=== PATIENT | male | born 1950 | race Caucasian/White ===

== ENCOUNTER 2021-11-05 05:48 | Observation (INO) | payer MEDICARE, OTHER ==
[~2021-11-05] VITALS: Ht 177.8 cm; Wt 70.3 kg
[~2021-11-05 05:48] MED LIST: CENTRUM ADULTS1 EACH PO; VITAMIN B-121000 MC2 PO; VITAMIN D310 MCG PO; ZINC PO
[2021-11-05] MEDS ORDERED: DEXAMETHASONE SOD PHOS 10 MG/1 ML VIAL ONE (06:35)
[2021-11-05] MEDS ORDERED: CELECOXIB 200 MG CAP ONE (06:35)
[2021-11-05] MEDS ORDERED: GABAPENTIN 300 MG CAP ONE (06:35)
[2021-11-05] MEDS ORDERED: TRANEXAMIC ACID 20 ML ONE (06:51)
[2021-11-05] MEDS ORDERED: Vancomycin IV 1,000 MG ONE (06:51)
[2021-11-05] MEDS ORDERED: SODIUM CHLORIDE 0.9% 500ML 500 ML ONE (06:51)
[2021-11-05] MEDS ORDERED: ROPIVACAINE 246.25 MG, EPINEPHRINE HCL 1:1000 1ML 0.5 MG, CLONIDINE HCL 0.08 MG, KETORO... INJ ONE ×5 (08:00)
[2021-11-05] MEDS ORDERED: ROPIVACAINE 0.5% 5 MG/ML 30 ML SDV ONE (08:21)
[2021-11-05] MEDS ORDERED: ONDANSETRON HCL INJ 2MG/ML 2ML 2 MG/ML VIAL IV PRN (09:30)
[2021-11-05] MEDS ORDERED: ACETAMINOPHEN 650 MG SUPP PR PRN (09:30)
[2021-11-05] MEDS ORDERED: ZOLPIDEM TARTRATE 5 MG TAB PO PRN (09:30)
[2021-11-05] MEDS ORDERED: DOCUSATE SODIUM 100 MG CAP PO PRN (09:30)
[2021-11-05] MEDS ORDERED: SODIUM CHLORIDE 0.9% 1000ML 1,000 ML IV SCH (09:30)
[2021-11-05] MEDS ORDERED: KETOROLAC TROMETHAMINE 30 MG/ML VIAL IV PRN (09:30)
[2021-11-05] MEDS ORDERED: HYDROCODONE/APAP 5MG-325MG TAB PO PRN (09:30)
[2021-11-05] MEDS ORDERED: HYDROCODONE/APAP 7.5MG-325MG 1 EA TAB PO PRN (09:30)
[2021-11-05] MEDS ORDERED: DIPHENHYDRAMINE HCL INJ 50 MG/ML VIAL IV PRN (09:30)
[2021-11-05] MEDS ORDERED: MEPERIDINE HCL INJ 25 MG/ML VIAL ONE (10:27)
[2021-11-05 12:08] VITALS: BP 157/92
[2021-11-05 12:09] VITALS: BP 157/92
[2021-11-05 12:11] VITALS: BP 157/92
[2021-11-05 12:32] VITALS: BP 157/92
[2021-11-05] MEDS ORDERED: POVIDONE IODINE 0.05% 0.05 % ML PO ONE (12:33)
[2021-11-05] MEDS ORDERED: ACETAMINOPHEN 1000 MG/100 ML IV ONE (12:33)
[2021-11-05] MEDS ORDERED: GLYCOPYRROLATE INJ 0.2 MG/ML VIAL ONE (12:33)
[2021-11-05] MEDS ORDERED: ONDANSETRON HCL INJ 2MG/ML 2ML 2 MG/ML VIAL ONE (12:33)
[2021-11-05] MEDS ORDERED: LIDOCAINE HCL 2% LOCAL INJ 5 ML SDV VIAL INJ ONE (12:33)
[2021-11-05] MEDS ORDERED: PROPOFOL IV EMULSION 10 MG/ML 20 ML VIAL ONE (12:33)
[2021-11-05] MEDS ORDERED: SEVOFLURANE INHAL SOLN 250 ML PEN BTL ONE (12:33)
[2021-11-05] MEDS ORDERED: ACETAMINOPHEN 1000 MG/100 ML IV PRN (14:00)
[2021-11-05 16:07] VITALS: BP 125/85
[2021-11-05] MEDS ORDERED: ASPIRIN 325 MG TAB PO SCH (17:00)
[2021-11-05] MEDS ORDERED: CELECOXIB 100 MG CAP PO SCH (17:00)
[2021-11-05] MEDS ORDERED: ASPIRIN81 MG PO (17:21)
== END 2021-11-05 18:21 | disposition home or self-care (01) ==
LOC: OR 05:48 → PACU V 10:18 → MED/SURG2 11:45
PROVIDERS: ADMIT Specialist; ATTEND Specialist
DX: M17.11 Unilateral primary osteoarthritis, right knee (principal); Z01.818 Encounter for other preprocedural examination; F17.290 Nicotine dependence, other tobacco product, uncomplicated
CPT/HCPCS: 0223U; 27447; 36415; 71046; 73560; 86850; 86900; 86920; 94799; 97110; 97116; 97161; C1713 ×3; C1776 ×3; G0378; J0131; J0171; J0690; J1100; J1885; J2175; J2795; J3370; J7040; J2001; J2405